=== PATIENT | male | born 1970 | race African-American/Black ===

== ENCOUNTER 2016-09-22 18:22 | Inpatient (IN) | payer OTHER ==
--- NOTE | ~2016-09-22 | PN ---
Unit #: [id number] #: [id number] Patient: NATHAN HOU III [id number] [facility] [address] [place] [address] [id number] MR#: [id number] NAME: NATHAN HOU III ROOM: P181 Age: 46 Sex: M Admission Date: 09/22/2016 : 1970 Attending Physician: Dakota Donovan M.D. Admitting Physician: Dakota Donovan M.D. Primary Care Physician: Primary Care Physician Leyla EPSTEIN NOTES DATE 09/23/2016 DISCUSSION Mr. Hou is a 46-year-old white male who was seen today and chart was reviewed. His case was discussed with the staff. He has anxious, withdrawn and rather seclusive to himself. He has been cooperative with treatment recommendation and has been taking medication and tolerating them fairly well without any side effects. MENTAL STATUS EXAM Middle age white male who was casually dressed with a fair personal hygiene, appears to be in no acute distress or discomfort. He was awake and alert on interaction with intact orientation. His mood was anxious with a congruent affect. He denies any suicidal or homicidal ideation. His insight and judgment remains slightly impaired. TREATMENT PLAN 1. We will continue him on his current medications and treatment protocol. We will monitor his response and make further adjustments as needed. 2. We will continue to follow up. Dictated by... Dakota Donovan M.D. IAA/kanu TD: 09/25/2016 11:52 JOB #: [id number] Unit #: [id number] #: [id number] Patient: NATHAN HOU III [facility] PROGRESS NOTES Page 1 of 1 X Dakota Donovan MD PROGRESS NOTE
--- NOTE | ~2016-09-22 | DS ---
Unit #: [id number] #: [id number] [facility]: [facility]ATH[facility] HOU III [id number] [facility] [address] [place] [address] [id number] MR#: [id number] NAME: NATHAN HOU III ROOM: 81 Age: 46 Sex: M Admission Date: 09/22/2016 : 1970 Discharge Date: 09/26/2016 Attending Physician: Dakota Donovan M.D. Primary Care Physician: Primary Care Physician No DISCHARGE SUMMARY IDENTIFYING DATA Mr. Hou is a 46-year-old single male, who is a resident of [place], [place], and was self-referred to the hospital on a voluntary basis. DISCHARGE DIAGNOSES Psychiatric: Alcohol dependence, moderate and acute withdrawals; alcohol-induced mood disorder. Medical: Asthma, history of alcoholic pancreatitis. Stressors: Moderate psychosocial stressors. HISTORY OF PRESENT ILLNESS Please see initial psychiatric evaluation for details. PAST PSYCHIATRIC HISTORY Please see initial psychiatric evaluation for details. PAST MEDICAL HISTORY Please see initial psychiatric evaluation for details. HOSPITAL COURSE The patient was admitted to the adult chemical dependency unit at [facility] and was oriented to the hospital environment. Routine p.r.n. medications were initiated, and he was started on the detox protocol and was closely monitored. He was taking the medications regularly and was tolerating them fairly well and was able to come out of the detox without any complications and was willing to continue treatment on an outpatient basis and as such, it was decided that he will be discharged home and will continue treatment on an outpatient basis. DISCHARGE MEDICATIONS Remeron 15 mg at bedtime for depression. DISCHARGE CONDITION Stable. PROGNOSIS Fair. Dictated by... Yrn Lundberg/modl Unit #: [id number] #: [id number] Patient: NATHAN HOU III TD: 09/27/2016 08:08 JOB #: [id number] DISCHARGE SUMMARY Page 1 of 1 X Dakota Donovan MD X DISCHARGE SUMMARY
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
--- NOTE | ~2016-09-22 | A ---
[facility] Nutrition Therapy DATE: 09/23/16 Patient: NATHAN HOU III Physician: ELVIF Address: [address] Room/Bed: [address], Zip: [place] [address] Admit Date: 09/22/16 Date of : [birth year] Height: 5 10 Weight: [id number] NUTRITIONAL ASSESSMENT: REASON: NUTRIITON RISK POINT- UNINTENTIONAL WEIGHT LOSS PATIENT ADMITTED FOR ETOH DETOX, DEPRESSION, AND SI PMH: PANCREATITIS, ASTHMA, HTN Anthropometrics: HT: 5'10", WT: 133#, BMI: 19.1, %IBW: 80 Labs: 09/23/16- ALL NUTRITIONAL LABS WNL Meds: REMERON, DETOX PROTOCOL Assessment: PATIENT IS A 46 Y/O MALE ADMITTED FOR ETOH DETOX, DERESSION, AND SI. PATIENT IS CURRENTLY EMPLOYED, SMOKES A 1/2 PPD, HAS DAILY ETOH AND COCAINE USE, FREQUENT MARIJUANA AND OPIATE USE, AND HX OF HEROIN USE. PATIENT HAS A HX OF INPATIENT/OUTPATIENT PSYCH TREATMENT. PATIENT STATED A GOOD APPETIT WITH A 14# WEIGHT LOSS OVER LAST SEVERAL MONTHS, AND HE HAS ONLY BEEN SLEEPING 3 HOURS/NIGHT. CURRENT PO INTAKES ARE NOT AVAILABLE. PATIENT IS ON A REGULAR DIET WITH NO CAFFEINE. THERE ARE NO SKIN OR GI ISSUES NOTED ATT. REMERON MAY CAUSE WEIGHT FLUCTUATIONS. Dx: UNINTENTIONAL WEIGHT LOSS R/T CURRENT CONDITION, DETOX AEB SELF-REPORTED WEIGHT LOSS, NUTRITIONAL RISK POINT, <90% IBW Intervention: REGULAR DIET WITH NO CAFFEINE, MEDS PER MD, DETOX, PSYCH Monitoring, Evaluation and Goals: 1. ADEQUATE PO INTAKES >50% OF MEALS 2. PREVENT, CORRECT MICRO/MACRO NUTRIENT DEFICIENCIES MONITOR: WEIGHTS, LABS, PO/FLUID INTAKES Recommendations: 1. CONTINUE REGULAR DIET WITH NO CAFFEINE TOLERATED. OFFER SNACKS BETWEEN MEALS. IF PATIENT HAS C/O HUNGER SEND ORDER FOR LARGE PORTION ENTREES AND RD WILL APPROVE. 2. ENCOURAGE ADEQUATE PO AND FLUID INTAKES 3. OBTAIN WEIGHTS ROUTINELY (EVERY 3-4 DAYS) 4. IF PO INTAKES FALL BELOW 50% OF MEALS PLEASE ORDER ENSURE BID TO PROMOTE ADEQUATE KCAL AND PROTEIN INTAKES [facility] Nutrition Therapy DATE: 09/23/16 Patient: NATHAN HOU III Physician: ELVIF Address: [address] Room/Bed: P181-1 [facility], Zip: [place] [address] Admit Date: 09/22/16 Date of : [birth year] Height: 5 10 Weight: [id number] TO F/U PER PROTOCOL AND PRN R/T PATIENT MILDLY COMPROMISED Respectfully, SLADE COLUNGA RD, LD Food and Nutrition[facility] Services [facility] cc: client file
--- NOTE | ~2016-09-22 | PA ---
Unit #: [id number] #: [id number] Patient: NATHAN HOU III [id number] [facility] [address] [place] [address] [id number] MR#: [id number] NAME: NATHAN HOU III ROOM: P181 Age: 46 Sex: M Admission Date: 09/22/2016 : 1970 Date of Assessment: Attending Physician: Dakota Donovan M.D. Admitting Physician: Dakota Donovan M.D. PSYCHIATRIC ASSESSMENT DATE OF SERVICE 09/23/2016. IDENTIFYING DATA Mr. Hou is a 46-year-old single male, who is a resident of [place], [place], and was self-referred to the hospital on a voluntary basis. CHIEF COMPLAINT "I almost killed myself, drinking myself, blacking out." HISTORY OF PRESENT ILLNESS Mr. Hou is a 46-year-old single male, who was self-referred to the hospital reporting history of alcohol dependence and wanting detox and stated that he has been working for [employer] and has been having difficulty keeping up with the pace of the work due to his constant drinking and has had significant consequences because of his addiction and reports long history of alcohol dependence and now reports increasing depression, anxiety, irritability, restlessness, feelings of hopelessness and helplessness, and suicidal ideation stating that in the last 3 days he has had thoughts that others would be better off without him and that he last had the thought a couple of days ago and was still having suicidal thoughts and was seen to be a danger to self and as such, a recommendation for inpatient level of care for safety and stabilization was made and he was transferred to us. SUBSTANCE ABUSE HISTORY The patient reports long history of substance abuse and dependence including experimentation with opioids, cocaine, and cannabis, but alcohol has been his drug of choice as he reports that he has been drinking 12 to 20 beers a day as well as half a pint of humaira a day and has been having blackouts and that he has been having thoughts of drinking himself to . PAST PSYCHIATRIC HISTORY The patient has had a history of chemical dependency treatment in the past. Review of the medical records indicate that currently he is not active in any treatment program, is not seeing a psychiatrist, and is not taking any psychotropic medications. PAST MEDICAL HISTORY Significant for alcoholic pancreatitis and asthma. Unit #: [id number] #: [id number] Patient: NATHAN HOU III ALLERGIES No known medication allergies. PERSONAL AND SOCIAL HISTORY A 46-year-old male, who reports that he is single, unemployed, and lives at home with his mother and sister and has fairly decent social support system. MENTAL STATUS EXAMINATION Middle-aged male, who was casually dressed with fair personal hygiene, appears to be in no acute distress or discomfort. He was awake and alert on interaction with intact orientation to time, place, and person. His mood was anxious and depressed with a congruent affect. His speech was slow and restricted in content. His thought processes were disorganized with some looseness of associations and suicidal ideations. His insight and judgment remain significantly impaired. DIAGNOSTIC IMPRESSION Psychiatric: Alcohol dependence, moderate, in acute withdrawal and alcohol-induced mood disorder. Medical: Asthma and alcoholic pancreatitis. Stressors: Moderate psychosocial stressors. TREATMENT PLAN The patient has presented with a history of substance abuse and mood disorder and has been decompensating and will need inpatient hospitalization for detoxification, safety, and stabilization. We will start him back on his home medications and we will adjust the medications and monitor response. ESTIMATED LENGTH OF STAY 5 to 7 days. ABILITY TO HELP SELF Limited. WILLINGNESS TO HELP SELF The patient appears to be willing to help self. STRENGTHS 1. Communicative. 2. Cooperative. PROBLEMS 1. Chronic dysphoric symptoms. 2. Poor social support system. DISCHARGE CRITERIA This will be contingent upon the patient's ability to go through detox without having any significant withdrawal symptoms and his ability to stay safe to himself, particularly after discharge from the hospital. Dictated by... Yrn Lundberg/parvin Unit #: [id number] #: [id number] Patient: NATHAN HOU III TD: 09/23/2016 13:49 JOB #: [id number] PSYCHIATRIC ASSESSMENT Page 1 of 1 X Dakota Donovan MD PSYCHIATRIC ASSESSMENT
--- NOTE | ~2016-09-22 | PN ---
Unit #: [id number] #: [id number] Patient: NATHAN HOU III [id number] [facility] [address] [place] [address] [id number] MR#: [id number] NAME: NATHAN HOU III ROOM: P181 Age: 46 Sex: M Admission Date: 09/22/2016 : 1970 Attending Physician: Dakota Donovan M.D. Admitting Physician: Dakota Donovan M.D. Primary Care Physician: Primary Care Physician Leyla EPSTEIN NOTES DATE September 25, 2016 DISCUSSION Ms. Hou is a 46-year-old white male, who was seen today and chart was reviewed and the case was discussed with the staff. He has been anxious, withdrawn, and rather seclusive to himself. Meanwhile, he has been cooperative with the treatment recommendations and he has been taking the medications, and tolerating them fairly well with no reported side effects. MENTAL STATUS EXAMINATION Middle-aged white male, who was casually dressed with fair personal hygiene and appears to be in no acute distress or discomfort. He was awake and alert on interaction with intact orientation. His mood is anxious with a congruent affect. He denies any suicidal or homicidal ideations. His insight and judgment remain slightly impaired. TREATMENT PLAN 1. We will continue him on his current medications and treatment protocol, and will monitor his response to the medications, and make further adjustments as needed. 2. We will continue to followup. Dictated by... Yrn Lundberg/millie TD: 09/26/2016 10:40 JOB #: [id number] Unit #: [id number] #: [id number] Patient: NATHAN HOU III [facility] PROGRESS NOTES Page 1 of 1 X Dakota Donovan MD PROGRESS NOTE
[2016-09-23 09:28] LABS: BASOPHIL# 0.1 X10e3 (0-0.3); BASOPHIL% 1.2 % (0-2.5); EOSINOPHIL# 0.3 X10e3 (0-0.7); EOSINOPHIL% 4.2 % (0.0-7.0); HEMATOCRIT 43.1 % (38.0-50.0); HEMOGLOBIN 13.7 gm/dL (13.0-16.0); LYMPHOCYTE# 2.3 X10e3 (1.0-3.5); LYMPHOCYTE% 29.7 % (17.0-45.0); MEAN CELL VOLUME 88.1 FL (83-96); MEAN CORPUSCULAR HGB CONC 31.8 g/dL (30-36); MEAN PLATELET VOLUME 8.1 FL (6.5-11.5); MONOCYTE# 0.7 X10e3 (0-1.0); MONOCYTE% 9.5 % (3.0-12.0); NEUTROPHIL# 4.3 X10e3 (1.5-7.1); NEUTROPHIL% 55.4 % (40-75); PLATELET COUNT 359 X10e3 (140-420); RED BLOOD COUNT 4.89 X10e (3.90-5.60); RED CELL DISTRIBUTION WIDTH 16.1 % (11.0-15.5); WHITE BLOOD COUNT 7.8 X10e3 (4.0-10.5)
[2016-09-23 09:46] LABS: DIFF IND NO
[2016-09-23 09:59] LABS: ALBUMIN SERUM 3.7 g/dL (3.5-5.0); BILIRUBIN,TOTAL 1.2 mg/dL (0.2-2.0); BUN/CREATININE RATIO 16.66; CALCIUM SERUM 9.1 mg/dL (8.4-10.2); CREATININE SERUM 0.9 mg/dL (0.6-1.4); POTASSIUM 4.4 mmol/L (3.5-5.1); PROTEIN TOTAL SERUM 6.8 g/dL (6.0-8.3)
== END 2016-09-26 08:45 | disposition home or self-care (01) | DRG 897 ==
LOC: P1E 18:22
PROVIDERS: Psychiatry & Neurology Psychiatry
PROC: HZ2ZZZZ Detoxification Services for Substance Abuse Treatment (ICD-10-PCS; principal; 2016-09-22)
DX: F10.239 Alcohol dependence with withdrawal, unspecified (principal); K86.0 Alcohol-induced chronic pancreatitis; F10.24 Alcohol dependence with alcohol-induced mood disorder; J45.909 Unspecified asthma, uncomplicated; F17.210 Nicotine dependence, cigarettes, uncomplicated
CPT/HCPCS: 80053; 85025; 86592